=== PATIENT | male | born 1995 | race Caucasian/White ===

== ENCOUNTER 2020-05-04 20:20 | Emergency (ER) | payer OTHER ==
[~2020-05-04] VITALS: Ht 190.5 cm; Wt 90.9 kg
[2020-05-04 20:23] VITALS: Ht 190.5 cm; Wt 90.9 kg
[2020-05-04] MEDS ORDERED: TORADOL10 MG PO (21:08)
[2020-05-04 21:30] VITALS: BP 136/77
--- NOTE | 2020-05-04 21:37 | NUR ---
DR PANG NOTIFIED AND REVIEWED PT BEHAVIOR AND ASSESSMENT RESULTS. PT IS A LOW RISK PER DOCTOR PANG. DR PANG STATED TO GIVE RESOURCES TO PT AT TIME OF DISHCARGE. NO FURTHER ORDERS AT THIS TIME. RESOURCES REVIEWED WITH PT AND HE VERBALIZED UNDERSTANDING.
== END 2020-05-04 21:30 | disposition home or self-care (01) ==
LOC: D.ER 20:20
DX: S80.01XA Contusion of right knee, initial encounter (principal); S60.511A Abrasion of right hand, initial encounter; S80.211A Abrasion, right knee, initial encounter; S60.221A Contusion of right hand, initial encounter; V89.0XXA Person injured in unspecified motor-vehicle accident, nontraffic, initial encounter; Y93.9 Activity, unspecified; Y92.9 Unspecified place or not applicable